=== PATIENT | female | born 1990 | race Two or more races ===

== ENCOUNTER 2024-03-29 10:10 | Day surgery (SDC) | payer MEDICAID, SELFPAY ==
[2024-03-28 11:29] VITALS: BMI 25.4
[2024-03-28 12:11] LABS: Basophils % (Auto) 0 % (0-2.5); Eosinophils # (Auto) 0.2 Thou/mm3 (0.0-0.5); Eosinophils % (Auto) 3 % (0-10); Hematocrit 37.5 % (36.0-46.0); Hemoglobin 12.9 g/dL (12.0-16.0); Immature Granulocytes % (Auto) 0 % (0-0); Immature Granulocytes Auto 0.01 Thou/mm3 (0.00-0.00); Lymphocytes # (Auto) 1.8 Thou/mm3 (1.0-4.8); Lymphocytes % (Auto) 30 % (10-50); Mean Corpuscular HGB Conc 34.4 g/dl (31.0-37.0); Mean Corpuscular Hemoglobin 30.4 pg (25.0-35.0); Mean Corpuscular Volume 88 fL (80-100); Monocytes # (Auto) 0.5 Thou/mm3 (0.0-0.8); Monocytes % (Auto) 9 % (0-12); Neutrophils # (Auto) 3.4 Thou/mm3 (1.8-7.7); Neutrophils % (Auto) 58 % (37-80); Nucleated Red Blood Cell % 0 /100 WBC (0); Platelet Count 245 Thou/mm3 (140-440); RDW Standard Deviation 44.2 fL (36.4-46.3); Red Blood Count 4.24 Miln/mm3 (4.00-5.20); White Blood Count 5.9 Thou/mm3 (3.6-11.0)
[2024-03-28 12:32] LABS: Anion Gap 8 (7-16); BUN/Creatinine Ratio 16 Ratio (12-20); Blood Urea Nitrogen 11 mg/dL (9-23); Calcium 9.2 mg/dL (8.3-10.6); Carbon Dioxide 24.6 mMol/L (20.0-31.0); Chloride 107 mMol/L (98-107); Creatinine (Component) 0.7 mg/dL (0.6-1.3); Estimated Creatinine Clearance 99.9 mL/min (>60); Glucose 87 mg/dL (74-106); HCG,Qualitative Serum Negative; Osmolality,Calculated 277 (275-295); Potassium 3.5 mMol/L (3.4-5.1); Sodium 140 mMol/L (136-145); eGFR > 60 See Note
[2024-03-29] VITALS (10 sets, daily range): BP systolic 101–128; BP diastolic 57–85; PULSE 62–97; RESP 14–19; TEMP 36.2–36.4; O2SAT 99–100; BMI 25.4
--- NOTE | 2024-03-29 10:53 | CHAP ---
Prayed with patient before upcoming procedure and gave words of encouragement.
[2024-03-29] MEDS: RINGERS LACTATED 500 ML 500 ML 20 ML IV (11:04)
--- NOTE | 2024-03-29 12:45 | ESDS_ITS ---
Planned Discharge Date 03/29/24 DS: Providers Provider Primary care physician: Navi Sandy MD Attending Provider on Admission: Valdo Del Real MD Attending Provider on DC: Valdo Del Real MD Discharging Provider: Valdo Del Real MD DS: Diagnosis Problem List Completed Was Problem List Reviewed/Reconciled?: Yes Hospital Course Time Spent with Patient Time attestation: Total time spent providing and/or coordinating discharge services: Quality: VTE Deep Vein Thrombosis/Pulmonary Embolism Present on Admission: No Exam - PRODUCTION ANALYST Vital Signs Temp Pulse Resp BP Pulse Ox 97.2 F 77 16 108/57 L 100 03/29/24 10:54 03/29/24 10:54 03/29/24 10:54 03/29/24 10:54 03/29/24 10:54 Discharge Plan Plan Patient Disposition: HOME (Self Care) Prescriptions/Referrals Prescriptions/Med Rec: New ibuprofen 800 mg tablet 800 mg PO Q8H 7 Days Qty: 21 0RF Referrals: Valdo Del Real MD [Physician] - Navi Sandy MD [Primary Care Provider] - Patient/Caregiver Discharge Instructions Education Materials: Laparoscopic Tubal Sterilization Print Language: Colombian Stand Alone Forms: Liliana Award Info., Patient Portal Info Letter Discharge Order Discharge Orders: Discharge (Routine); Ordered 03/29/24 Ordered By: Valdo Del Real
--- NOTE | 2024-03-29 12:47 | ESOP_ITS ---
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 General anesthesia was administered and airway was secured.? Patient was now positioned in the dorsal lithotomy [facility] The abdomen and perineum were prepped in the usual sterile fashion and sterile drapes were applied.? The bladder was emptied using a straight catheter.?Attention was now turned to the patient's abdomen.? A 5 mm infraumbilical incision was made using a scalpel.? Laparoscopic entry was accomplished under direct visualization using Think Sky laparoscopic trocar.? Once intra-abdominal placement was confirmed pneumoperitoneum was insufflated to 15 mmHg.? The camera was now introduced into the abdomen and a preliminary survey was performed showing normal uterus, tubes and ovaries. A pair of accessory ports were placed 2 cm cephalad and medial to the ASIS after a 5 and 8 mm incisions were done on the right and left side respectively.? The Enseal device was used to perform bilateral salpingectomy in the usual fashion with excellent hemostasis noted . All instruments were now withdrawn.? Pneumoperitoneum was desufflated.? The laparoscopic ports were removed.? The skin was now closed using 4-0 Monocryl in a subcuticular fashion Specimen: left tube and right tube Estimated blood loss (ml): 5 Findings: Normal uterus, tubes, ovaries Complications: none Surgical staff Operation Date: 03/29/24 13:00 <No data on this case meets the specified criteria> Diagnosis Problem List Completed Was Problem List Reviewed/Reconciled?: Yes
--- NOTE | 2024-03-29 12:57 | SUR.PHASEI ---
pt arrived to PACU via gurney drowsy but arouses to verbal commands, breathing unlabored, dressing to abdomen clean, dry, and intact, report from Rojelio COLE and Dr Betancur
--- NOTE | 2024-03-29 13:09 | SUR.PHASEI ---
Report to Quiana COLE
--- NOTE | 2024-03-29 15:11 | SUR.PHASEI ---
Addendum entered by Quiana Davis RN 03/29/24 15:12: 1410 discharge instructions given 1418 patient discharged home in wheelchair with all belongings at 1418 Original Note: 1309 patient is awake, alert, breathing unlabored, s/p tubal ligation, dermabond to abdomen, no bleeding noted report received from Mishel Celeste RN. 1410 patient is awake, alert, breathing unlabored, able to tolerate fluids with no nausea or vomiting, meets discharge criteria, discharge instructions given to patient and Nathaniel, patient discharged home in wheelchair with all belongings.
== END 2024-03-29 14:18 | disposition home or self-care (01) ==
PROVIDERS: PCP Family Medicine; Referring Provider Obstetrics & Gynecology; Visit Provider Obstetrics & Gynecology
PROC: (CPT 58700; principal; 2024-03-29 12:45)
DX: Z30.2 Encounter for sterilization (principal)
CPT/HCPCS: 58661; 36415; 80048; 84703; 85025; 86850; 86900; 86901; A4649; J1100; J1885; J2250; J2405; J2704; J3010; J3490; J7120